=== PATIENT | female | born 2000 | race African-American/Black ===

== ENCOUNTER 2025-07-23 08:38 | Emergency (ER) | payer OTHER ==
[~2025-07-23] VITALS: Ht 160 cm; Wt 81.8 kg
[2025-07-23 10:00] LABS: APPEARANCE, URINE CLEAR (CLEAR); BACTERIA, URINE AUTO NEGATIVE (NEGATIVE); BILIRUBIN, URINE AUTO NEGATIVE (NEGATIVE); BLOOD, URINE BLOOD 2+ (NEGATIVE); GLUCOSE, URINE (UA) AUTO NEGATIVE (NEGATIVE); KETONE, URINE AUTO NEGATIVE (NEGATIVE); LEUKOCYTE ESTERASE, URINE AUTO NEGATIVE (NEGATIVE); MUCUS, URINE SMALL (NEGATIVE); NITRITE, URINE AUTO NEGATIVE (NEGATIVE); PROTEIN, URINE AUTO NEGATIVE (NEGATIVE); RBC, URINE AUTO 1 /HPF (0-3); SPECIFIC GRAVITY URINE AUTO 1.021 (1.002-1.035); SQUAMOUS EPITHELIAL CELL UR AU 3 /HPF (0-6); URINE PREG TEST NEGATIVE (NEGATIVE); UROBILINOGEN, URINE AUTO 0.2 mg/dL (0.0-2.0); WBC, URINE AUTO 0 /HPF (0-3)
[2025-07-23] MEDS ORDERED: HOME MED LIST COMPLETE! XX SCH (12:00)
[2025-07-23 12:01] VITALS: BP 138/81; TEMP 98.2; O2SAT 100
[2025-07-23] MEDS ORDERED: VENTAER INH (12:09)
[2025-07-23] MEDS ORDERED: BENZ200C70 PO (12:09)
== END 2025-07-23 12:16 | disposition home or self-care (01) ==
LOC: M ED 08:38
DX: R05.9 Cough, unspecified (principal); B34.1 Enterovirus infection, unspecified; Z79.51 Long term (current) use of inhaled steroids; Z79.899 Other long term (current) drug therapy

== ENCOUNTER 2025-08-18 13:53 | Emergency (ER) | payer OTHER ==
[~2025-08-18] VITALS: Ht 162.6 cm; Wt 83.8 kg
[~2025-08-18 13:53] MED LIST: BENZ200C70 PO; VENTAER INH
[2025-08-18 13:57] VITALS: TEMP 98.4
[2025-08-18] MEDS: METOCLOPRAMIDE 10 MG TAB PO ONE (16:09)
[2025-08-18 17:31] VITALS: BP 124/64; O2SAT 99
== END 2025-08-18 17:32 | disposition home or self-care (01) ==
LOC: M ED 13:53
DX: R51.9 Headache, unspecified (principal); R59.0 Localized enlarged lymph nodes; Z79.51 Long term (current) use of inhaled steroids; Z79.899 Other long term (current) drug therapy